=== PATIENT | male | born 1965 | race Asian ===

== ENCOUNTER 2021-06-17 21:16 | Emergency (ER) | payer OTHER, SELFPAY ==
--- NOTE | 2021-06-17 21:23 | DI.RAD.S_ITS ---
PROCEDURE: XR FOOT LT MIN 3V INDICATIONS: injury TECHNIQUE: 3 views of the foot were acquired. COMPARISON: None. FINDINGS: Bones: Nondisplaced avulsion fracture involving the medial base of the 1st metatarsal. Soft tissues: No tibiotalar joint effusion. Achilles tendon appears normal. IMPRESSION: 1st metatarsal base avulsion fracture. Dictated by: Tamia Burnett MD, PhD on 06/17/2021 at 21:36 Approved by: Tamia Burnett MD, PhD on 06/17/2021 at 21:37
[2021-06-17 21:25] VITALS: BP 126/80; PULSE 85; RESP 16; TEMP 36.7; O2SAT 99; BMI 24.5
--- NOTE | 2021-06-17 22:55 | ED_ITS ---
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 He comes in complaining of pain. He does not have a primary care physician and has no reported medical history. Only medications he takes vitamins. Review of Systems Review of Systems Narrative: Pertinent positive and negative findings as per HPI Remainder of review of systems is otherwise unremarkable for Constitutional: Fevers, chills, weakness ENT: No sore throat, neck pain, ear pain CV: Chest pain, palpitations, dyspnea on exertion Respiratory: Cough, wheeze, dyspnea GI: Nausea, vomiting, diarrhea, change in bowel habits, black or bloody stools : Dysuria, hematuria, flank pain MS: Muscle weakness, numbness, joint swelling or warmth Neuro: Syncope, dizziness, tingling Exam Initial Vital Signs Initial Vital Signs: Vital Signs Temperature 98.0 F 06/17/21 21:25 Pulse Rate 85 06/17/21 21:25 Respiratory Rate 16 06/17/21 21:25 Blood Pressure 126/80 06/17/21 21:25 Pulse Oximetry 99 06/17/21 21:25 General: Alert appropriate in no acute distress Respiratory: Able to speak in full sentences, no obvious respiratory distress Skin: No obvious rashes, warm and dry Neurologic: Grossly intact no obvious asymmetries or abnormalities Psych: appropriate insight and affect, cooperative Extremity: Some tenderness over the dorsum of the midfoot medial and laterally without obvious deformity, abrasion or hematoma. He is neurovascularly intact. Procedures Orthopedic Splinting/Casting Left foot injury: Time of procedure: 22:57 Side: left Lower Extremity Injury Location: foot Lower Extremity Immobilizer: post-op shoe Post splinting neuro exam: intact Post splinting vascular exam: intact Placed by: Nursing Course Orders Ordered: ED Orders 06/17/21 21:23 XR foot LT min 3V Stat Acetaminophen (Acetaminophen 325 Mg Tablet) 325 mg PO NOW ONE Stop: 06/17/21 23:06 Ibuprofen (Ibuprofen 400 Mg Tablet) 400 mg PO NOW ONE Stop: 06/17/21 23:06 Vital Signs Vital signs: Vital Signs - 8 hr 06/17/21 21:25 Temperature 98.0 F Pulse Rate 85 Respiratory Rate 16 Blood Pressure 126/80 Pulse Oximetry 99 MDM - Extremity Injury (Lower) MDM Narrative Medical decision making narrative: 56-year-old gentleman no significant medical history with an L and I injury resulting in of 1st metatarsal base avulsion fracture. He is placed in a postop shoe for heart surface. Instructions on the use of ibuprofen and Tylenol for pain control. Recommended 5 days off work for healing. L&I forms are filled out tonight. Questions are answered. The hard-soled boot is tolerated well. Will ask him to follow-up with orthopedic surgery. He is safe for home discharge Discharge Plan Departure Patient Disposition: Home Clinical Impression: Fracture of first metatarsal bone of left foot Qualifiers: Encounter type: initial encounter Fracture type: closed Fracture alignment: nondisplaced Qualified Code(s): S92.315A - Nondisplaced fracture of first metatarsal bone, left foot, initial encounter for closed fracture Instructions: DI for Avulsion Fracture Activity Restrictions/Additional Instructions: Thank you for coming in today You do have a small fracture, a chip off the bone of the 1st metatarsal (the bone your the inside of your foot) This will heal nicely with minimal additional treatment. Would recommend a hard sole walking shoe until pain has significantly improved. Please follow-up with [facility] at [phone] I have recommended 5 work shifts off. You may return to full duty on 06/23. Using 400 mg of ibuprofen (2 [id number] pills) and 1 Tylenol every 6 hours can be very helpful in controlling pain. Ice may be helpful. Keeping the foot elevated as needed
[2021-06-17] MEDS: ACETAMINOPHEN 325 MG TABLET PO (23:09)
[2021-06-17] MEDS: IBUPROFEN 400 MG TABLET PO (23:10)
[2021-06-17 23:14] VITALS: BP 116/76; PULSE 70; RESP 16; O2SAT 99
--- NOTE | 2021-06-17 23:15 | PC.NURSE ---
Walking shoe placed on left foot.
== END 2021-06-17 23:15 | disposition home or self-care (01) ==
PROVIDERS: Emergency Provider Emergency Medicine
DX: S92.315A Nondisplaced fracture of first metatarsal bone, left foot, initial encounter for closed fracture (principal); W23.0XXA Caught, crushed, jammed, or pinched between moving objects, initial encounter; Y93.89 Activity, other specified; Y99.0 Civilian activity done for income or pay
CPT/HCPCS: 73630; 99283

== ENCOUNTER 2021-06-26 14:42 | Emergency (ER) | payer OTHER, SELFPAY ==
[2021-06-26] VITALS (7 sets, daily range): BP systolic 108–135; BP diastolic 57–65; PULSE 58–72; RESP 15–24; TEMP 36.8; O2SAT 98–100; BMI 22.1
--- NOTE | 2021-06-26 15:17 | DI.RAD.S_ITS ---
PROCEDURE: XR ACUTE ABDOMEN SERIES INDICATIONS: r/o constipation TECHNIQUE: One view chest and two views of the abdomen were acquired. COMPARISON: None. FINDINGS: Surgical changes and devices: None. Chest: Lungs are clear. Heart size is normal. Atherosclerotic calcification of the aortic arch is noted. No pleural effusions. No pneumoperitoneum. Abdomen: Bowel gas pattern is normal. There is a mild amount of stool seen within the colon. No suspicious calcifications. Visualized solid organ contours appear normal. Bones: No suspicious bony lesions. Age-appropriate bony degenerative changes are seen. IMPRESSION: There is a nonobstructive bowel gas pattern. The amount of stool within the colon is not excessive. Clear lungs. Dictated by: Adria Mena M.D. on 06/26/2021 at 14:40 Approved by: Adria Mena M.D. on 06/26/2021 at 14:41
[2021-06-26 15:28] LABS: Alanine Aminotransferase 42 IU/L (<50); Albumin 4.5 g/dL (3.5-5.0); Albumin Globulin Ratio 1.3 (1.0-2.8); Alkaline Phosphatase 83 U/L (38-126); Aspartate Aminotransferase 40 IU/L (17-59); BUN Creatinine Ratio 18.1 (6-22); Blood Urea Nitrogen 17 mg/dL (9-20); Calcium 8.9 mg/dL (8.4-10.2); Carbon Dioxide 20 mmol/L (22-32); Chloride 107 mmol/L (98-107); Estimated Glomerular Filt Rate > 60.0 mL/min (>60); Globulin 3.4 g/dL (1.7-4.1); Glucose 100 mg/dL (70-100); Lipase 105 U/L (23-300); Sodium 137 mmol/L (137-145); Total Protein 7.9 g/dL (6.3-8.2)
[2021-06-26 15:30] LABS: HEMOLYSIS 114 (0-50)
[2021-06-26 15:42] LABS: Add Manual Diff / Slide Review NO; Basophils Absolute Auto 0 /uL (0-100); Basophils Percent Auto 0.5 % (0-2); Eosinophils Absolute Auto 100 /uL (0-450); Eosinophils Percent Auto 0.9 % (2-4); Hematocrit 43.1 % (41-53); Hemoglobin 14.8 g/dL (13.5-17.5); Lymphocytes Absolute Auto 2200 /uL (1100-4500); Lymphocytes Percent Auto 21.2 % (25-40); Mean Corpuscular HGB Conc 34.3 % (30-36); Mean Corpuscular Hemoglobin 31.7 PG (26-34); Mean Corpuscular Volume 92.4 fL (80-100); Monocytes Absolute Auto 500 /uL (0-900); Monocytes Percent Auto 4.9 % (3-14); Neutrophils Absolute Auto 7600 /uL (1500-7000); Neutrophils Percent Auto 72.5 % (50-75); Platelet Count 252 X10^3/uL (150-400); Red Blood Cell Count 4.67 X10^6/uL (4.5-5.9); Red Cell Distribution Width 13.8 % (11.6-14.8); White Blood Cell Count 10.5 X10^3/uL (4.5-11.0)
--- NOTE | 2021-06-26 15:48 | DI.CT.S_ITS ---
PROCEDURE: CT ABDOMEN PELVIS W CON INDICATIONS: epigastric, LLQ, RLQ pain, periumbilical- 4 days, emesis TECHNIQUE: After the administration of IV contrast, axial sections were acquired from the lung bases to the pubic symphysis. Coronal and sagittal reformats were performed. For radiation dose reduction, the following was used: automated exposure control, adjustment of mA and/or kV according to patient size. COMPARISON: [facility], CR, XR ACUTE ABDOMEN SERIES, 06/26/2021, 15:12. FINDINGS: Image quality: Excellent. Lung bases: Unremarkable. Heart: No significant findings. ABDOMEN: Liver: Unremarkable. Gallbladder: Unremarkable. Biliary ducts: Unremarkable. Pancreas: Unremarkable. Spleen: Unremarkable. Incidental note is made of an accessory splenule along the lateral of the primary spleen. Adrenal Glands: Unremarkable. Kidneys and Ureters: At the inferior pole of the right kidney, there is a nonenhancing water density cyst seen. A similar appearing cyst can be seen along the medial aspect of the left kidney, 1.3 cm. The kidneys demonstrate normal size and enhance symmetrically. There is no hydronephrosis. Stomach and Bowel: Stomach, small bowel loops, and colon are unremarkable. Amount of colonic stool is not excessive. Peritoneum: No abnormal intraperitoneal fluid. No free air. Ventral Wall: No hernia. Abdominal Nodes: No retroperitoneal or mesenteric adenopathy by size criteria. Vessels: Aorta and inferior vena cava are normal in size. Anatomic variant is seen, with a common origin of the celiac axis and the SMA. This artery is widely patent. PELVIS: Pelvic Organs: Unremarkable. Bladder: Unremarkable. Pelvic Nodes: No enlarged lymph nodes. Miscellaneous: No inguinal hernias are seen. Bones: Age-appropriate bony degenerative changes are seen. IMPRESSION: No imaging explanation is found for this patient's presenting symptoms. No dilated loops of small bowel are seen. The amount of stool within the colon is not excessive. Incidental note is made of: Simple appearing bilateral renal cysts Accessory splenule Common origin of the celiac axis and SMA Dictated by: Adria Mena M.D. on 06/26/2021 at 15:34 Approved by: Adria Mena M.D. on 06/26/2021 at 15:38
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
[2021-06-26] MEDS: ONDANSETRON 4 MG/2 ML INJ IV (16:14)
[2021-06-26] MEDS: HYDROMORPHONE 0.5 MG INJ IV (16:14)
[2021-06-26] MEDS: SODIUM CHLORIDE 0.9% 1,000 ML 1000 ML IV (16:14)
[2021-06-26] MEDS: PANTOPRAZOLE 40 MG VIAL 20 MG IV (16:15)
[2021-06-26] MEDS: MAG HYDROX/ALUMINUM/SIMETH SUS 20 ML, LIDOCAINE VISCOUS 2% 15 ML PO (16:16)
== END 2021-06-26 17:51 | disposition home or self-care (01) ==
PROVIDERS: Emergency Medicine; Emergency Provider Nurse Practitioner Critical Care Medicine
DX: R10.13 Epigastric pain (principal); F17.210 Nicotine dependence, cigarettes, uncomplicated
CPT/HCPCS: 36415; 74022; 74177; 80053; 81003; 83605; 83690; 85025; 96361; 96374; 96375; 99284; C9113; J1170; J2405; Q9967

== ENCOUNTER 2023-02-04 02:33 | Emergency (ER) | payer OTHER, SELFPAY ==
[2023-02-04] VITALS (7 sets, daily range): BP systolic 113–148; BP diastolic 67–79; PULSE 62–76; RESP 13–23; TEMP 36.6–36.9; O2SAT 97–100; BMI 21.9
--- NOTE | 2023-02-04 02:33 | DI.CT.S_ITS ---
PROCEDURE: CT HEAD/BRAIN WO CON INDICATIONS: Sudden-onset headache TECHNIQUE: Noncontrast 4.5 mm thick angled axial sections acquired from the foramen magnum to the vertex, with coronal and sagittal reformats. For radiation dose reduction, the following was used: automated exposure control, adjustment of mA and/or kV according to patient size. COMPARISON: None. FINDINGS: Image quality: Excellent. CSF spaces: Basal cisterns are patent. No extra-axial fluid collections. Ventricles are normal in size and shape. Brain: No midline shift. No intracranial masses or hemorrhage. [place]-white matter interface is normal. Skull and face: Calvarium and visualized facial bones are intact, without suspicious lesions. Sinuses: Visualized sinuses and mastoids are clear. IMPRESSION: No acute intracranial abnormality. Dictated by: Thierno Nelson M.D. on 02/04/2023 at 8:26 Approved by: Thierno Nelson M.D. on 02/04/2023 at 8:27
--- NOTE | 2023-02-04 02:34 | DI.CT.S_ITS ---
PROCEDURE: CT ANGIO HEAD AND NECK INDICATIONS: Sudden-onset headache TECHNIQUE: After the administration of intravenous contrast, 1 mm thick sections acquired from the aortic arch through the [place] of [place]. 3-dimensional vckknwt-wfftkytiy-tyygjxuyjm (MIP) and/or volume rendering reformats were acquired of the central intracranial vasculature and neck separately. For radiation dose reduction, the following was used: automated exposure control, adjustment of mA and/or kV according to patient size. COMPARISON: None. FINDINGS: Image quality: Diagnostic. BRAIN: CSF spaces: Ventricles are normal in size and shape. Basal cisterns are patent. No extra-axial fluid collections. Brain: No significant abnormality of the brain can be seen. Skull and face: Calvarium and facial bones appear intact, without suspicious lesions. Orbits appear normal. Sinuses: Sinuses and mastoids are clear. HEAD CT ANGIOGRAPHY: Anterior circulation: Intracranial internal carotid arteries are normal in size and flow. The flow within the paired anterior cerebral arteries is normal and symmetric. The flow within the middle cerebral arteries is normal and symmetric. The anterior communicating artery is seen. No aneurysms are seen. Posterior circulation: Visualized portions of the vertebral arteries demonstrate normal caliber, and join to form a normal appearing basilar artery. Flow within the posterior cerebral arteries is normal and symmetric. No aneurysms are seen. NECK CT ANGIOGRAPHY: Carotid system: The great vessels demonstrate a conventional anatomy as they arise from the aortic arch. The origins of the common carotid arteries appear patent. The common carotid arteries demonstrate normal caliber and courses. The bifurcation regions are both widely patent. The internal carotid arteries demonstrate normal calibers and courses. Posterior circulation: The origins of the vertebral arteries both appear widely patent. The more superior extracranial portions of both vertebral arteries also demonstrate normal courses and calibers. They join to form a normal appearing basilar artery. Soft tissues: Visualized neck soft tissues demonstrate no suspicious abnormalities. Bones: No suspicious bony lesions. Visualized cervical spine appears normally aligned. IMPRESSION: 1. No acute process involving the arterial tree of the head and neck. Any quantitative measurements of stenosis were performed using NASCET criteria. Dictated by: Thierno Nelson M.D. on 02/04/2023 at 8:15 Approved by: Thierno Nelson M.D. on 02/04/2023 at 8:17
[2023-02-04 02:49] LABS: Add Manual Diff / Slide Review NO; Basophils Absolute Auto 300 /uL (0-100); Basophils Percent Auto 2.6 % (0-2); Eosinophils Absolute Auto 300 /uL (0-450); Eosinophils Percent Auto 3.1 % (2-4); Hematocrit 38.3 % (41-53); Hemoglobin 13.1 g/dL (13.5-17.5); Lymphocytes Absolute Auto 3500 /uL (1100-4500); Mean Corpuscular HGB Conc 34.2 % (30-36); Mean Corpuscular Hemoglobin 32.5 PG (26-34); Mean Corpuscular Volume 95.2 fL (80-100); Monocytes Absolute Auto 600 /uL (0-900); Monocytes Percent Auto 5.7 % (3-14); Neutrophils Absolute Auto 5200 /uL (1500-7000); Neutrophils Percent Auto 52.6 % (50-75); Platelet Count 275 X10^3/uL (150-400); Red Blood Cell Count 4.03 X10^6/uL (4.5-5.9); White Blood Cell Count 9.8 X10^3/uL (4.5-11.0)
[2023-02-04 02:52] LABS: INR 1.2 (0.9-1.3); Prothrombin Time 13.4 SECONDS (10.1-12.7)
[2023-02-04 02:55] LABS: PTT Partial Thromboplastin Tim 33 SECONDS (26-36)
[2023-02-04 03:01] LABS: Alanine Aminotransferase 20 IU/L (<50); Albumin 4.2 g/dL (3.5-5.0); Albumin Globulin Ratio 1.4 (1.0-2.8); Alkaline Phosphatase 78 U/L (38-126); Aspartate Aminotransferase 30 IU/L (17-59); BUN Creatinine Ratio 15.7 (6-22); Bilirubin Total 0.4 mg/dL (0.2-1.3); Blood Urea Nitrogen 19 mg/dL (9-20); Calcium 8.9 mg/dL (8.4-10.2); Carbon Dioxide 23 mmol/L (22-32); Chloride 108 mmol/L (98-107); Estimated Glomerular Filt Rate > 60 mL/min (>60); Globulin 2.9 g/dL (1.7-4.1); Glucose 105 mg/dL (70-100); HEMOLYSIS 15 (0-50); Lipase 225 U/L (23-300); Sodium 138 mmol/L (137-145); Total Protein 7.1 g/dL (6.3-8.2)
--- NOTE | 2023-02-04 03:20 | ED.NEUROSD ---
HPI - Neuro Symptoms/Deficit General Chief Complaint: Neuro Symptoms/Deficit Stated Complaint: headache w/ history of TIA Time Seen by Provider: 02/04/23 02:33 Source: patient, family and EMS Mode of arrival: EMS Limitations: language barrier History of Present Illness HPI Narrative: 57-year-old male. [place]ovan is not his 1st language but he does understand [place]ovan. His daughter is at bedside and providing translation services. Both the patient's daughter and the patient are okay with this. Recently was seen at an outside facility admitted to the hospital and diagnosed with a TIA. He is on aspirin and Plavix. He is here for evaluation of a fairly sudden onset of right-sided headache. Patient was at work at the time. When he was admitted to the outside hospital and diagnosed with a TIA he was having vision problems and problems speaking. He did not have any of those symptoms today. He was not having any numbness and tingling in his upper or lower extremities. No fevers. Sore throat. Chest pain. Shortness of breath. No skin rashes. Has not taken anything for his symptoms prior to arrival. On Anticoagulants: No Related Data Home Medications Medication Instructions Recorded Confirmed aspirin 81 mg chewable tablet 1 tab PO DAILY 02/04/23 02/04/23 clopidogrel 75 mg tablet 75 mg PO DAILY 02/04/23 02/04/23 Previous Rx's Medication Instructions Recorded omeprazole 20 mg capsule,delayed 20 mg PO DAILY epigastric pain #30 06/26/21 release caps ondansetron 4 mg disintegrating 4 mg PO Q8H PRN nausea and 06/26/21 tablet vomiting #10 tabs sucralfate 1 gram tablet (Carafate) 1 g PO BID for stomach pain #60 06/26/21 tabs tramadol 50 mg tablet 50 mg PO DAILY PRN pain #10 tabs 06/26/21 Allergies Allergy/AdvReac Type Severity Reaction Status Date / Time No Known Drug Allergies Allergy Verified 02/04/23 02:51 Review of Systems Constitutional Constitutional: Reports system reviewed and no additional complaints, except as documented Eyes Eyes: Reports system reviewed and no additional complaints, except as documented ENT Ears, Nose, Mouth, and Throat: Reports system reviewed and no additional complaints, except as documented Cardiovascular Cardiovascular: Reports system reviewed and no additional complaints, except as documented Respiratory Respiratory: Reports system reviewed and no additional complaints, except as documented Gastrointestinal Gastrointestinal: Reports system reviewed and no additional complaints, except as documented Musculoskeletal Musculoskeletal: Reports system reviewed and no additional complaints, except as documented Integumentary/Breasts Skin/Breast: Reports system reviewed and no additional complaints, except as documented Neurologic Neurologic: Reports system reviewed and no additional complaints, except as documented Hematologic/Lymphatic On Anticoagulants: No Patient History Medical History TIA (transient ischemic attack) Social History Smoking Status: Current every day smoker Smoking Status: Current every day smoker tobacco type: cigarettes alcohol intake frequency: holidays/special occasions only Substance Use Type: does not use Exam Initial Vital Signs Initial Vital Signs: Vital Signs Temperature 98.5 F 02/04/23 02:34 Pulse Rate 71 02/04/23 02:34 Respiratory Rate 22 02/04/23 02:34 Blood Pressure 123/68 02/04/23 02:34 Pulse Oximetry 99 02/04/23 02:34 Oxygen Delivery Method Room Air 02/04/23 02:34 Const General: cooperative and No ill appearing HENMT Head: normal to inspection and normocephalic Resp Effort & Inspection: normal respiratory effort Auscultation: clear to auscultation bilaterally Cardio Rate: regular rate Rhythm: regular rhythm GI Inspection: normal to inspection Neuro General: patient alert, patient awake and moves all extremities Cranial Nerves: CN's II-XI intact bilaterally Cognition: normal cognition Speech: speech normal Motor: muscle tone normal throughout Sensory Exam: no sensory deficits noted Extrem General: capillary refill normal Scores GCS [place] coma scale eye opening: Spontaneous [place] coma scale verbal response: Orientated [place] coma scale motor response: Obey commands [place] coma scale total score: 15 Course Orders Ordered: ED Orders 02/04/23 02:33 CT head/brain wo con Stat 02/04/23 02:34 CT angio head and neck Stat 02/04/23 02:36 Complete Blood Count AUTO DIFF Stat Comprehensive Metabolic Panel Stat Lipase Stat PTT Partial Thromboplastin Lexx Stat Prothrombin Time INR Stat 02/04/23 03:13 EKG-12 Lead Stat Discontinued Medications Hydromorphone HCl (Hydromorphone 1 Mg Inj) 1 mg IV NOW ONE Stop: 02/04/23 03:22 Last Admin: 02/04/23 03:33 Dose: 1 mg Documented By: GC Vital Signs Vital signs: Vital Signs - 8 hr 02/04/23 02:34 02/04/23 03:05 02/04/23 03:06 Temperature 98.5 F Pulse Rate 71 75 Respiratory Rate 22 23 Blood Pressure 123/68 129/71 Pulse Oximetry 99 Oxygen Delivery Method Room Air 02/04/23 03:06 Temperature Pulse Rate 76 Respiratory Rate 17 Blood Pressure Pulse Oximetry 100 Oxygen Delivery Method MDM - Neuro Symptoms/Deficit Lab Data Attestation: I reviewed the patient's lab results. 02/04/23 02:36 02/04/23 02:36 Labs: Lab Results 02/04/23 Range/Units 02:36 WBC 9.8 (4.5-11.0) X10^3/uL RBC 4.03 L (4.5-5.9) X10^6/uL Hgb 13.1 L (13.5-17.5) g/dL Hct 38.3 L (41-53) % MCV 95.2 (80-100) fL MCH 32.5 (26-34) PG MCHC 34.2 (30-36) % RDW 14.0 (11.6-14.8) % Plt Count 275 (150-400) X10^3/uL Neut % (Auto) 52.6 (50-75) % Lymph % (Auto) 36.0 (25-40) % [place] % (Auto) 5.7 (3-14) % Eos % (Auto) 3.1 (2-4) % Baso % (Auto) 2.6 H (0-2) % Neut # (Auto) 5200 (9107-8022) /uL Lymph # (Auto) 3500 (2673-0426) /uL [place] # (Auto) 600 (0-900) /uL Eos # (Auto) 300 (0-450) /uL Baso # (Auto) 300 H (0-100) /uL PT 13.4 H (10.1-12.7) SECONDS INR 1.2 (0.9-1.3) APTT 33 (26-36) SECONDS Sodium 138 (137-145) mmol/L Potassium 4.0 (3.4-5.1) mmol/L Chloride 108 H (98-107) mmol/L Carbon Dioxide 23 (22-32) mmol/L BUN 19 (9-20) mg/dL Creatinine 1.21 (0.66-1.25) mg/dL Estimated GFR > 60 (>60) mL/min BUN/Creatinine Ratio 15.7 (6-22) Glucose 105 H (70-100) mg/dL Calcium 8.9 (8.4-10.2) mg/dL Total Bilirubin 0.4 (0.2-1.3) mg/dL AST 30 (17-59) IU/L ALT 20 (<50) IU/L Alkaline Phosphatase 78 (38-126) U/L Total Protein 7.1 (6.3-8.2) g/dL Albumin 4.2 (3.5-5.0) g/dL Globulin 2.9 (1.7-4.1) g/dL Albumin/Globulin Ratio 1.4 (1.0-2.8) Lipase 225 (23-300) U/L Point of Care Testing Glucose POC [address] scan - head: Radiologist's Impression: Unremarkable CT of the head CTA - brain/neck: Radiologist's Impression: Unremarkable CTA of head and neck ECG Data Attestation: I personally reviewed and interpreted this ECG as follows: Interpretation: Sinus rhythm Ventricular rate is 72 Normal axis Normal QRS Nonspecific ST T wave changes MDM Narrative Medical decision making narrative: Patient reports almost complete resolution of symptoms after medications here in the ER. His head CT and CTA are unremarkable. Both of these are done within 6 hours of the onset of the symptoms. Hematocrit greater than 30. He is no localizing neurologic signs. There is no indication of anterior cranial hemorrhage. Symptoms not consistent with TIA or CVA. Patient states he is feeling much better and is comfortable going home. While the patient follow-up with his primary provider for follow-up. Discharge Plan Departure Patient Disposition: Home Clinical Impression: Headache Instructions: DI for Headache Activity Restrictions/Additional Instructions: Recommend that you continue to take all of your medications as directed. Contact your primary provider for a follow-up. Return to the emergency department for new or worsening symptoms. Prescriptions: No Action omeprazole 20 mg capsule,delayed release(DR/EC) 20 mg PO DAILY Qty: 30 0RF sucralfate [Carafate] 1 gram tablet 1 g PO BID Qty: 60 0RF Rx Instructions: Please take this 30 minutes before meals to help protect her stomach. ondansetron 4 mg tablet,disintegrating 4 mg PO Q8H PRN (Reason: nausea and vomiting) Qty: 10 0RF tramadol 50 mg tablet 50 mg PO DAILY PRN (Reason: pain) Qty: 10 0RF clopidogrel 75 mg tablet 75 mg PO DAILY aspirin 81 mg tablet,chewable 1 tab PO DAILY Stand Alone Forms: Patient Portal/API
[2023-02-04] MEDS: HYDROMORPHONE 1 MG INJ IV (03:33)
== END 2023-02-04 05:21 | disposition home or self-care (01) ==
PROVIDERS: Emergency Provider Emergency Medicine
DX: R51.9 Headache, unspecified (principal); Z79.82 Long term (current) use of aspirin
CPT/HCPCS: 36415; 70450; 70496; 70498; 80053; 82962; 83690; 85025; 85610; 85730; 93005; 96374; 99284; J1170; Q9967